=== PATIENT | female | born 1965 | race Caucasian/White ===

== ENCOUNTER 2017-09-11 14:31 | Emergency (ER) | payer BC ==
[~2017-09-11] VITALS: Ht 177.8 cm; Wt 54.1 kg
[~2017-09-11 14:31] MED LIST: ALBU90OI INH; CODGUAEL PO; OXCA300 PO
[2017-09-11 14:46] LABS: Source, Urine Clean Catch
[2017-09-11 14:50] LABS: Appearance, Urine Hazy (Clear); Bilirubin, Urine Neg (Neg); Blood, Urine 1+ (Neg); Color, Urine Yellow (P-Yellow); Glucose Qualitative, Urine Neg (Neg); Ketones, Urine Neg (Neg); Leukocyte Esterase, Urine 3+ (Neg); Nitrite, Urine Pos (Neg); Protein, Urine 2+ (Neg); Specific Gravity, Urine 1.015 (1.003-1.022); Urobilinogen, Urine NORM (Normal)
[2017-09-11 15:08] LABS: Bacteria Many /hpf; Squamous Epithelial Cells Few /hpf (Few); White Blood Cells, Urine 50-100 /hpf (0-5)
[2017-09-11 15:23] LABS: BASOPHILS ABSOLUTE AUTO 0.05 K/mm3 (0.00-0.23); BASOPHILS PERCENT AUTO 0 % (0-2); EOSINOPHILS ABSOLUTE AUTO 0.07 K/mm3 (0.00-0.68); EOSINOPHILS PERCENT AUTO 1 % (0-6); Hematocrit 39.7 % (33.0-51.0); Hemoglobin 13.1 g/dL (11.5-16.0); IMMATURE GRAN ABSOLUTE AUTO 0.03 K/mm3 (0.00-0.10); IMMATURE GRAN PERCENT AUTO 0 % (0-1); LYMPHOCYTES ABSOLUTE AUTO 0.55 K/mm3 (0.84-5.20); LYMPHOCYTES PERCENT AUTO 5 % (21-46); MONOCYTES ABSOLUTE AUTO 0.29 K/mm3 (0.16-1.47); MONOCYTES PERCENT AUTO 3 % (4-13); Mean Corpuscular HGB 30.2 pg (26.0-34.0); Mean Corpuscular Volume 92 fL (80-100); Mean Platelet Volume 11.1 fL (9.1-12.4); NEUTROPHILS ABSOLUTE AUTO 10.27 K/mm3 (1.96-9.15); NEUTROPHILS PERCENT AUTO 91 % (41-73); Platelet Count 244 K/mm3 (150-400); RDW Coefficient Variation 12.6 % (11.7-14.2); RDW Standard Deviation 42.5 fL (35.1-46.3); Red Blood Cell Count 4.34 M/mm3 (3.80-5.20); White Blood Cell Count 11.26 K/mm3 (4.00-11.30)
[2017-09-11 15:44] LABS: Alanine Aminotransfer (ALT/SGP 21 U/L (12-78); Albumin/Globulin Ratio 1.1 (0.8-1.8); Alk Phos 92 U/L (50-136); Anion Gap 10 mmol/L (6-16); Aspartate Aminotrans (AST/SGOT 16 U/L (12-37); Bilirubin, Total 0.5 mg/dL (0.1-1.0); Blood Urea Nitrogen 13 mg/dL (8-24); Bun/Creatinine Ratio 14.6 (12.0-20.0); CO2, Blood 28 mmol/L (21-32); Calcium, Blood 8.9 mg/dL (8.5-10.1); Chloride, Blood 100 mmol/L (98-108); Creatinine, Blood 0.89 mg/dL (0.40-1.00); Globulin, Blood 3.8 g/dL (2.2-4.0); Glomerular Filtration Rate >60 (60-); Glucose, Blood 81 mg/dL (70-99); Potassium, Blood 3.9 mmol/L (3.5-5.5); Sodium, Blood 138 mmol/L (136-145); Total Protein, Blood 7.8 g/dL (6.4-8.2)
[2017-09-11] MEDS ORDERED: Pyridium200 MG PO (15:56)
[2017-09-11] MEDS ORDERED: CEFP200 PO (15:56)
== END 2017-09-11 16:08 | disposition home or self-care (01) ==
LOC: ER 14:31
PROVIDERS: Emergency Medicine
DX: N39.0 Urinary tract infection, site not specified (principal)
CPT/HCPCS: 36415; 80053; 81001; 85025; 87077; 87086; 87186; 99283

== ENCOUNTER 2017-11-24 00:40 | Emergency (ER) | payer BC ==
[~2017-11-24] VITALS: Ht 177.8 cm; Wt 54.4 kg
[~2017-11-24 00:40] MED LIST changes: +CEFP200 PO; +Pyridium200 MG PO
[2017-11-24] MEDS ORDERED: Cyclobenzaprine5 MG PO (01:26)
== END 2017-11-24 01:55 | disposition home or self-care (01) ==
LOC: ER 00:40
DX: M62.830 Muscle spasm of back (principal); M54.6 Pain in thoracic spine; Z88.0 Allergy status to penicillin; Z88.1 Allergy status to other antibiotic agents; Z79.899 Other long term (current) drug therapy; G40.909 Epilepsy, unspecified, not intractable, without status epilepticus
CPT/HCPCS: 96372; 99283; J1885

== ENCOUNTER 2019-08-21 19:34 | Emergency (ER) | payer BC ==
[~2019-08-21] VITALS: Ht 177.8 cm; Wt 56.7 kg
[~2019-08-21 19:34] MED LIST changes: +Cyclobenzaprine5 MG PO
[2019-08-21 19:49] LABS: Source, Urine Clean Catch
[2019-08-21 19:53] LABS: Appearance, Urine Hazy (Clear); Bilirubin, Urine Neg (Neg); Blood, Urine 1+ (Neg); Color, Urine Amber (P-Yellow); Glucose Qualitative, Urine Neg (Neg); Ketones, Urine Neg (Neg); Leukocyte Esterase, Urine 1+ (Neg); Nitrite, Urine Pos (Neg); Protein, Urine 1+ (Neg); Urobilinogen, Urine NORM (Normal)
[2019-08-21 20:01] LABS: Bacteria Many /hpf; Mucus Light (0-Heavy); Red Blood Cells, Urine 0-2 /hpf (0-2); Squamous Epithelial Cells Mod /hpf (Few)
[2019-08-21 20:09] LABS: Influenza A Negative (NEGATIVE); Influenza B Negative (NEGATIVE)
[2019-08-21] MEDS ORDERED: CEPH500 PO (21:51)
[2019-08-21] MEDS ORDERED: Pyridium200 MG PO (21:51)
== END 2019-08-21 22:04 | disposition home or self-care (01) ==
LOC: ER 19:34
PROVIDERS: Physician Assistant
DX: N39.0 Urinary tract infection, site not specified (principal)
CPT/HCPCS: 81001; 87077; 87086; 87186; 87804; 99283; A9270; A9270-GY

== ENCOUNTER 2024-08-08 08:14 | Emergency (ER) | payer BC, OTHER ==
[~2024-08-08] VITALS: Ht 177.8 cm; Wt 54.4 kg
[~2024-08-08 08:14] MED LIST changes: +CEPH500 PO
[2024-08-08 09:22] VITALS: BP 109/77
[2024-08-08] MEDS ORDERED: Ipratropium/Albuterol SulF 2.5-0.5MG/3 ML Amp INH ONE (10:05)
[2024-08-08] MEDS ORDERED: HYDROmorphone HCl/Pf 1MG SYR IM ONE (10:05)
[2024-08-08] MEDS ORDERED: Albuterol 2.5 MG/3 ML VIAL INH ONE (11:20)
[2024-08-08] MEDS ORDERED: Prednisone20 MG PO (11:23)
[2024-08-08] MEDS ORDERED: Zithromax250 MG PO (11:23)
[2024-08-08] MEDS ORDERED: RX Prepack Albuterol 1 PREPACK/6.7 GM INH UD ONE (11:25)
== END 2024-08-08 11:36 | disposition home or self-care (01) ==
LOC: ER 08:14
DX: J44.1 Chronic obstructive pulmonary disease with (acute) exacerbation (principal); R07.81 Pleurodynia; F17.200 Nicotine dependence, unspecified, uncomplicated; Z79.52 Long term (current) use of systemic steroids; Z79.899 Other long term (current) drug therapy; Z88.0 Allergy status to penicillin; Z88.1 Allergy status to other antibiotic agents
CPT/HCPCS: 71046; 94640; 94664; 96372; 99283-25; A9270; J1171

== ENCOUNTER 2024-08-15 10:38 | Emergency (ER) | payer OTHER ==
[~2024-08-15] VITALS: Ht 177.8 cm; Wt 54.4 kg
[~2024-08-15 10:38] MED LIST changes: +Prednisone20 MG PO; +Zithromax250 MG PO
[2024-08-15 10:49] VITALS: BP 137/91
[2024-08-15] MEDS ORDERED: Ketorolac Tromethamine 30mg Vial IM ONE (10:50)
[2024-08-15] MEDS ORDERED: CODEINE-GUAIFE120 M1 PO (10:52)
[2024-08-15] MEDS ORDERED: MONDOXYNE NL100 MG PO (12:46)
== END 2024-08-15 11:45 | disposition home or self-care (01) ==
LOC: ER 10:38
DX: R07.81 Pleurodynia (principal); F17.200 Nicotine dependence, unspecified, uncomplicated; G40.909 Epilepsy, unspecified, not intractable, without status epilepticus; Z79.899 Other long term (current) drug therapy; Z88.0 Allergy status to penicillin; Z88.1 Allergy status to other antibiotic agents
CPT/HCPCS: 71101; 96372; 99283-25; J1885